=== PATIENT | male | born 1970 | race African-American/Black ===

== ENCOUNTER 2018-03-14 16:53 | Observation (INO) ==
[2018-03-14 18:08] LABS: PT Patient Result 10.7 SECS; Partial Thromboplastin Time 25.2 SECS (0-40)
[2018-03-14 18:19] LABS: Albumin 3.8 G/DL (3.4-5.0); Bilirubin,Total 0.4 MG/DL (0.2-1.0); Calcium 8.8 MG/DL (8.5-10.1); Osmolality,Calculated 280.8 MOS/KG (273-304); Potassium 4.4 MMOL/L (3.5-5.1); Total Protein 8.6 G/DL (6.4-8.3)
[2018-03-14] MEDS ORDERED: LACTATED RINGERS 1,000 ML IV ONE (19:39)
[2018-03-14 22:25] LABS: Basophils % 0.7 % (0.0-0.8); Hematocrit 34.5 VOL% (42.0-52.0); Hemoglobin 11.2 GM/DL (14.0-18.0); Immature Granulocytes % 0.2 %; Immature Granulocytes Absolute 0.01 #; Lymphocytes # 1.8 10*3/uL (1.4-4.0); Lymphocytes % 44.1 % (21.2-54.2); Mean Corpuscular HGB Conc 32.5 GM/DL (32-36); Mean Corpuscular Hemoglobin 30 PG (27-34); Mean Corpuscular Volume 92.5 FL (87-102); Monocytes # 0.3 10*3/uL (0.11-0.8); Monocytes % 6.5 % (1.7-12.7); Neutrophils % 47.5 % (38.7-73.9); Platelet Count 147 T/CUMM (130-400); Red Blood Count 3.73 MC/CUMM (3.8-5.5); Red Cell Distribution Width 15.7 % (9.3-17.3); White Blood Count 4.2 T/CUMM (4-12)
[2018-03-14 22:52] LABS: Hypochromasia 1+; Platelet Estimate Normal
[2018-03-14] MEDS ORDERED: THIAMINE 200 MG/2 ML VIAL IV STA (23:15)
[2018-03-14] MEDS ORDERED: FOLIC ACID INJ 1 MG in SYRINGE 1 EACH IV STA (23:16)
[2018-03-14] MEDS ORDERED: MULTIVITAMIN (BEROCCA) TABLET PO STA (23:19)
[2018-03-14] MEDS ORDERED: DEXTROSE 5% LACTATED RINGERS 1,000 ML IV SCH (23:30)
[2018-03-14] MEDS ORDERED: LACTATED RINGERS 1,000 ML IV SCH (23:30)
[2018-03-15] MEDS ORDERED: LORazepam 1 MG TABLET PO PRN (02:17)
[2018-03-15] MEDS ORDERED: SODIUM CHLORIDE 0.9% 1,000 ML IV SCH (02:30)
[2018-03-15] MEDS ORDERED: ENOXAPARIN 40 MG/0.4 ML SYRINGE SUBCUT SCH (09:00)
[2018-03-15] MEDS ORDERED: THIAMINE 100 MG TABLET PO SCH (09:00)
[2018-03-15] MEDS ORDERED: FOLIC ACID 1 MG TABLET PO SCH (09:00)
[2018-03-15] MEDS ORDERED: MULTIVITAMIN (CENTRUM) TABLET PO SCH (09:00)
[2018-03-15 11:44] VITALS: BP 153/99
== END 2018-03-15 12:56 | disposition home or self-care (01) ==
LOC: EDUNIT# → N.ED 16:53 → N.EDINP 16:53 → SUATTDRO 03-15 02:36 → N.2E 03-15 02:45
PROVIDERS: ADMIT Internal Medicine Infectious Disease; ATTEND Internal Medicine Cardiovascular Disease

== ENCOUNTER 2020-03-30 10:06 | Inpatient (IN) ==
[2020-03-30] MEDS ORDERED: SODIUM CHLORIDE 0.9% 1,000 ML IV STA (10:45)
[2020-03-30 12:08] LABS: Basophils % 0.2 % (0.0-0.8); Hematocrit 41.4 VOL% (42.0-52.0); Hemoglobin 13.3 GM/DL (14.0-18.0); Immature Granulocytes % 0.5 %; Immature Granulocytes Absolute 0.02 #; Lymphocytes # 0.3 10*3/uL (1.4-4.0); Mean Corpuscular HGB Conc 32.1 GM/DL (32-36); Mean Corpuscular Volume 91.8 FL (87-102); Mean Platelet Volume 12.8 FL (9.6-12.0); Monocytes % 7.3 % (1.7-12.7); Red Blood Count 4.51 MC/CUMM (3.8-5.5); Red Cell Distribution Width 13.9 % (9.3-17.3); White Blood Count 4.4 T/CUMM (4-12)
[2020-03-30 12:11] LABS: Platelet Count 95 T/CUMM (130-400)
[2020-03-30 12:41] LABS: Apearance,Urine CLOUDY (Clear); Blood, Urine Moderate mg/dL (Negative); Glucose,Urine (UA) Negative (Negative); Hyaline Casts,Urine 135 /LPF (0-3); Ketones,Urine Negative (Negative); Mucus,Urine Many /LPF (Occasional); Nitrite,Urine Negative (Negative); Protein,Urine 100 MG/DL; RBC,Urine 12 /HPF (0-4); Urine Color Amber (Yellow); Urine Specific Gravity 1.024 (1.001-1.035); Urine Urobilinogen < 2.0 EU/DL (0.2-1.0)
[2020-03-30 12:42] LABS: Bilirubin,Urine Small mg/dL (Negative)
[2020-03-30 12:45] LABS: Barbiturates Screen,Urine Negative (Negative); Benzodiazepines Screen,Urine Negative (Negative); Cannabinoid Screen,Urine Negative (Negative); Opiate Screen,Urine Negative (Negative); Phencyclidine Screen,Urine Negative (Negative)
[2020-03-30 12:47] LABS: Band Neutrophils 62 % (0-10); Lymphocytes 8 % (20-55); Nucleated Red Blood Cells 2 (0-5); Platelet Estimate Decreased; Segmented Neutrophils 22 % (50-85); Total Cells Counted 100
[2020-03-30 12:48] LABS: Macrocytosis Slight
[2020-03-30 12:55] LABS: Alanine Aminotransferase 199 U/L (16-61); Albumin 3.7 G/DL (3.4-5.0); Alkaline Phosphatase 120 U/L (45-117); Aspartate Amino Transferase 360 U/L (0-37); Blood Urea Nitrogen 11 MG/DL (7-18); Calcium 9.5 MG/DL (8.5-10.1); Glucose 91 MG/DL (74-106); Osmolality,Calculated 260.7 MOS/KG (273-304); Total Protein 9.5 G/DL (6.4-8.3)
[2020-03-30 12:58] LABS: Estimated Glom Filtration Rate 0 ML/MIN
[2020-03-30] MEDS ORDERED: THIAMINE 200 MG/2 ML VIAL IV STA (14:16)
[2020-03-30] MEDS ORDERED: ONDANSETRON 4 MG/2 ML VIAL IV PRN (15:33)
[2020-03-30] MEDS ORDERED: guaiFENesin/DM ER 600-30 MG TABLET PO PRN (15:33)
[2020-03-30] MEDS ORDERED: hydrALAZINE 20 MG/1 ML VIAL IV PRN (15:33)
[2020-03-30] MEDS ORDERED: DEXTROSE 50% 25 GM/50 ML VIAL IV PRN (15:33)
[2020-03-30] MEDS ORDERED: GLUCAGON 1 MG VIAL IM PRN (15:33)
[2020-03-30] MEDS ORDERED: LORazepam 2 MG/1 ML VIAL IV PRN (15:40)
[2020-03-30] MEDS ORDERED: THIAMINE INJ 100 MG, FOLIC ACID INJ 1 MG, MULTIVITAMIN INJ 10 ML in SODIUM CHLORIDE 0.9... IV ONE (15:41)
[2020-03-30] MEDS ORDERED: POTASSIUM CHLORIDE 20 MEQ TABLET PO ONE (15:52)
[2020-03-30 16:20] LABS: PT Patient Result 10.9 SECS (9.8-11.9); Partial Thromboplastin Time 38.3 SECS (23.9-33.8)
[2020-03-30] MEDS ORDERED: ACETAMINOPHEN 325 MG TABLET ONE (18:02)
[2020-03-30 18:11] LABS: Folate 14.1 NG/ML (5.4-24.0)
[2020-03-30] MEDS: ACETAMINOPHEN 325 MG TABLET PO PRN (18:27)
[2020-03-30 18:50] LABS: Hepatitis B Core IgM Quant 0.17 Index; Hepatitis B Surface Ag Quant < 0.10 Index; Hepatitis B Surface Ag Result Negative (Negative); Hepatitis C Virus Ab Result Negative (Negative)
[2020-03-31] MEDS: SODIUM CHLOR 0.9% KCL 20 MEQ 20 MEQ/1,000 ML BAG IV SCH ×3 (00:36→19:22)
[2020-03-31 05:15] LABS: Basophils % 0.3 % (0.0-0.8); Hematocrit 35.4 VOL% (42.0-52.0); Hemoglobin 11.4 GM/DL (14.0-18.0); Immature Granulocytes % 0.3 %; Immature Granulocytes Absolute 0.01 #; Lymphocytes # 0.6 10*3/uL (1.4-4.0); Mean Corpuscular HGB Conc 32.2 GM/DL (32-36); Mean Corpuscular Volume 92.2 FL (87-102); Mean Platelet Volume 13.4 FL (9.6-12.0); Monocytes % 18.7 % (1.7-12.7); Neutrophils % 61.7 % (38.7-73.9); Platelet Count 96 T/CUMM (130-400); Red Blood Count 3.84 MC/CUMM (3.8-5.5); Red Cell Distribution Width 13.9 % (9.3-17.3); White Blood Count 3.3 T/CUMM (4-12)
[2020-03-31 05:45] LABS: Albumin 2.7 G/DL (3.4-5.0); Bilirubin,Total 0.7 MG/DL (0.2-1.0); Osmolality,Calculated 260.5 MOS/KG (273-304); Risk Ratio 2.62; Thyroid Stimulating Hormone 2.15 uIU/ml (0.358-3.74); Total Protein 7.3 G/DL (6.4-8.3); VLDL CHOLESTEROL 20.8 MG/DL
[2020-03-31 06:16] LABS: Band Neutrophils 15 % (0-10); Eosinophils 1 % (0-10); Hypochromasia 1+; Lymphocytes 15 % (20-55); Metamyelocytes 1 %; Segmented Neutrophils 55 % (50-85); Total Cells Counted 100
[2020-03-31 06:17] LABS: Macrocytosis Slight; Platelet Estimate Decreased; Polychromasia Slight; Stomatocytes Slight
[2020-03-31] MEDS: MULTIVITAMIN (CENTRUM) TABLET PO SCH (08:51)
[2020-03-31] MEDS: THIAMINE 100 MG TABLET PO SCH (08:51)
[2020-03-31] MEDS: PANTOPRAZOLE 40 MG TABLET PO SCH (08:51)
[2020-03-31] MEDS: FOLIC ACID 1 MG TABLET PO SCH (08:52)
[2020-03-31] MEDS: LOPERAMIDE 2 MG CAPSULE PO PRN ×2 (10:11→14:14)
[2020-03-31] MEDS: ZINC OXIDE PASTE 113 GM TUBE TOP SCH ×2 (17:23→20:13)
[2020-04-01] MEDS: SODIUM CHLOR 0.9% KCL 20 MEQ 20 MEQ/1,000 ML BAG IV SCH ×3 (03:30→20:24)
[2020-04-01 05:42] LABS: Basophils % 0.4 % (0.0-0.8); Hemoglobin 10.8 GM/DL (14.0-18.0); Immature Granulocytes % 0.4 %; Immature Granulocytes Absolute 0.02 #; Lymphocytes # 0.5 10*3/uL (1.4-4.0); Lymphocytes % 11.4 % (21.2-54.2); Mean Corpuscular HGB Conc 31.8 GM/DL (32-36); Mean Corpuscular Volume 92.4 FL (87-102); Mean Platelet Volume 12.5 FL (9.6-12.0); Monocytes % 16.7 % (1.7-12.7); Neutrophils % 71.1 % (38.7-73.9); Platelet Count 103 T/CUMM (130-400); Red Blood Count 3.68 MC/CUMM (3.8-5.5); Red Cell Distribution Width 13.6 % (9.3-17.3); White Blood Count 4.5 T/CUMM (4-12)
[2020-04-01 06:11] LABS: Albumin 2.6 G/DL (3.4-5.0); Bilirubin,Total 0.6 MG/DL (0.2-1.0); Calcium 8.2 MG/DL (8.5-10.1); Osmolality,Calculated 255.9 MOS/KG (273-304)
[2020-04-01] MEDS ORDERED: POTASSIUM CHLORIDE 20 MEQ TABLET PO ONE (08:01)
[2020-04-01 08:11] LABS: Band Neutrophils 6 % (0-10); Hypochromasia 1+; Lymphocytes 14 % (20-55); Platelet Estimate Decreased; Segmented Neutrophils 64 % (50-85); Total Cells Counted 100
[2020-04-01] MEDS: THIAMINE 100 MG TABLET PO SCH (09:33)
[2020-04-01] MEDS: FOLIC ACID 1 MG TABLET PO SCH (09:33)
[2020-04-01] MEDS: MULTIVITAMIN (CENTRUM) TABLET PO SCH (09:33)
[2020-04-01] MEDS: PANTOPRAZOLE 40 MG TABLET PO SCH (09:33)
[2020-04-01] MEDS: ZINC OXIDE PASTE 113 GM TUBE TOP SCH ×2 (09:34→20:25)
[2020-04-01] MEDS: chlordiazePOXIDE 10 MG CAPSULE PO PRN (15:17)
[2020-04-01] MEDS: hydrALAZINE 10 MG TABLET PO SCH ×2 (16:05→20:24)
[2020-04-01] MEDS: ACETAMINOPHEN 325 MG TABLET PO PRN (16:05)
[2020-04-01] MEDS ORDERED: TUBERCULIN SKIN TEST 0.1 ML SYRINGE INTRADERM ONE (16:47)
[2020-04-02] MEDS: chlordiazePOXIDE 10 MG CAPSULE PO PRN ×2 (01:58→10:57)
[2020-04-02] MEDS: SODIUM CHLOR 0.9% KCL 20 MEQ 20 MEQ/1,000 ML BAG IV SCH ×2 (04:23→19:19)
[2020-04-02 05:19] LABS: Basophils % 0.5 % (0.0-0.8); Eosinophils % 0.2 % (0.00-10.9); Hematocrit 33.5 VOL% (42.0-52.0); Hemoglobin 11.1 GM/DL (14.0-18.0); Immature Granulocytes % 0.5 %; Immature Granulocytes Absolute 0.03 #; Lymphocytes % 15.9 % (21.2-54.2); Mean Corpuscular HGB Conc 33.1 GM/DL (32-36); Mean Corpuscular Volume 89.1 FL (87-102); Mean Platelet Volume 11.9 FL (9.6-12.0); Monocytes % 29.7 % (1.7-12.7); Neutrophils % 53.2 % (38.7-73.9); Platelet Count 118 T/CUMM (130-400); Red Blood Count 3.76 MC/CUMM (3.8-5.5); Red Cell Distribution Width 13.4 % (9.3-17.3); White Blood Count 6.3 T/CUMM (4-12)
[2020-04-02 05:50] LABS: Albumin 2.6 G/DL (3.4-5.0); Bilirubin,Total 0.7 MG/DL (0.2-1.0); Calcium 8.5 MG/DL (8.5-10.1); Osmolality,Calculated 252.1 MOS/KG (273-304); Total Protein 7.2 G/DL (6.4-8.3)
[2020-04-02 06:55] LABS: Anisocytosis 1+; Band Neutrophils 23 % (0-10); Lymphocytes 23 % (20-55); Platelet Estimate Adequate; Segmented Neutrophils 31 % (50-85); Total Cells Counted 100
[2020-04-02 06:56] LABS: Macrocytosis 1+
[2020-04-02] MEDS: MULTIVITAMIN (CENTRUM) TABLET PO SCH (08:30)
[2020-04-02] MEDS: hydrALAZINE 10 MG TABLET PO SCH ×3 (08:30→21:02)
[2020-04-02] MEDS: THIAMINE 100 MG TABLET PO SCH (08:30)
[2020-04-02] MEDS: PANTOPRAZOLE 40 MG TABLET PO SCH (08:30)
[2020-04-02] MEDS: ZINC OXIDE PASTE 113 GM TUBE TOP SCH ×2 (08:31→21:02)
[2020-04-02] MEDS: FOLIC ACID 1 MG TABLET PO SCH (08:32)
[2020-04-02] MEDS ORDERED: cefTRIAXone 1,000 MG in SYRINGE 1 EACH IV SCH (09:00)
[2020-04-02] MEDS: metroNIDAZOLE INJ 500 MG in PREMIX 1 EACH IV SCH ×2 (10:49→17:42)
[2020-04-02] MEDS: CIPROFLOXACIN INJ 400 MG in PREMIX 1 EACH IV SCH ×2 (12:07→22:46)
[2020-04-02] MEDS: CLOTRIMAZOLE 1% CREAM 15 GM TUBE TOP SCH ×2 (12:08→21:02)
[2020-04-03] MEDS: metroNIDAZOLE INJ 500 MG in PREMIX 1 EACH IV SCH ×2 (01:29→10:57)
[2020-04-03 05:46] LABS: Basophils % 0.3 % (0.0-0.8); Eosinophils # 0.1 10*3/uL (0.0-0.87); Eosinophils % 1.2 % (0.00-10.9); Hematocrit 32.3 VOL% (42.0-52.0); Hemoglobin 10.6 GM/DL (14.0-18.0); Immature Granulocytes % 0.7 %; Immature Granulocytes Absolute 0.04 #; Lymphocytes % 17.6 % (21.2-54.2); Mean Corpuscular HGB Conc 32.8 GM/DL (32-36); Mean Corpuscular Volume 89.2 FL (87-102); Mean Platelet Volume 11.4 FL (9.6-12.0); Monocytes % 27.1 % (1.7-12.7); Neutrophils % 53.1 % (38.7-73.9); Platelet Count 159 T/CUMM (130-400); Red Blood Count 3.62 MC/CUMM (3.8-5.5); Red Cell Distribution Width 13.6 % (9.3-17.3); White Blood Count 5.8 T/CUMM (4-12)
[2020-04-03 06:07] LABS: Calcium 8.2 MG/DL (8.5-10.1); Osmolality,Calculated 266.1 MOS/KG (273-304)
[2020-04-03 06:49] LABS: Band Neutrophils 24 % (0-10); Eosinophils 2 % (0-10); Lymphocytes 14 % (20-55); Metamyelocytes 1 %; Platelet Estimate Normal; Segmented Neutrophils 38 % (50-85); Smudge Cells Few; Total Cells Counted 100; Toxic Granulation 1+
[2020-04-03 06:50] LABS: Anisocytosis 1+; Target Cells Few; Tear Drop Cells Few
[2020-04-03] MEDS ORDERED: MAGNESIUM SULF RIDER 2 GM in PREMIX 1 EACH IV ONE (07:40)
[2020-04-03] MEDS: MULTIVITAMIN (CENTRUM) TABLET PO SCH (09:40)
[2020-04-03] MEDS: FOLIC ACID 1 MG TABLET PO SCH (09:40)
[2020-04-03] MEDS: hydrALAZINE 10 MG TABLET PO SCH ×3 (09:40→21:08)
[2020-04-03] MEDS: LOPERAMIDE 2 MG CAPSULE PO PRN ×2 (09:40→21:07)
[2020-04-03] MEDS: THIAMINE 100 MG TABLET PO SCH (09:40)
[2020-04-03] MEDS: PANTOPRAZOLE 40 MG TABLET PO SCH (09:41)
[2020-04-03] MEDS: CLOTRIMAZOLE 1% CREAM 15 GM TUBE TOP SCH ×2 (09:41→21:08)
[2020-04-03] MEDS: ZINC OXIDE PASTE 113 GM TUBE TOP SCH ×2 (09:42→21:08)
[2020-04-03] MEDS: SODIUM CHLOR 0.9% KCL 20 MEQ 20 MEQ/1,000 ML BAG IV SCH ×2 (09:42→21:27)
[2020-04-03] MEDS: POTASSIUM CHLORIDE 20 MEQ TABLET PO SCH (10:04)
[2020-04-03] MEDS: CIPROFLOXACIN INJ 400 MG in PREMIX 1 EACH IV SCH (12:46)
[2020-04-03] MEDS: ACETAMINOPHEN 325 MG TABLET PO PRN (14:46)
[2020-04-04] MEDS: LOPERAMIDE 2 MG CAPSULE PO PRN (01:48)
[2020-04-04 06:05] LABS: Basophils # 0.1 10*3/uL (0.0-0.2); Basophils % 0.8 % (0.0-0.8); Eosinophils # 0.1 10*3/uL (0.0-0.87); Eosinophils % 1.9 % (0.00-10.9); Hematocrit 32.4 VOL% (42.0-52.0); Hemoglobin 10.2 GM/DL (14.0-18.0); Immature Granulocytes % 0.8 %; Immature Granulocytes Absolute 0.05 #; Lymphocytes # 1.4 10*3/uL (1.4-4.0); Lymphocytes % 23.2 % (21.2-54.2); Mean Corpuscular HGB Conc 31.5 GM/DL (32-36); Mean Corpuscular Volume 91.5 FL (87-102); Mean Platelet Volume 10.7 FL (9.6-12.0); Monocytes % 21.2 % (1.7-12.7); Neutrophils % 52.1 % (38.7-73.9); Platelet Count 262 T/CUMM (130-400); Red Blood Count 3.54 MC/CUMM (3.8-5.5); White Blood Count 5.9 T/CUMM (4-12)
[2020-04-04 06:34] LABS: Band Neutrophils 1 % (0-10); Eosinophils 3 % (0-10); Hypochromasia 1+; Lymphocytes 22 % (20-55); Microcytosis 1+; Platelet Estimate Adequate; Segmented Neutrophils 55 % (50-85); Total Cells Counted 100
[2020-04-04 06:46] LABS: Calcium 8.2 MG/DL (8.5-10.1); Osmolality,Calculated 270.7 MOS/KG (273-304)
[2020-04-04 06:50] LABS: Albumin 2.2 G/DL (3.4-5.0); Bilirubin,Direct 0.16 MG/DL (0.0-0.20); Bilirubin,Indirect 0.6 MG/DL (0.0-1.0); Bilirubin,Total 0.8 MG/DL (0.2-1.0); Total Protein 6.8 G/DL (6.4-8.3)
[2020-04-04] MEDS ORDERED: TUBERCULIN SKIN TEST 0.1 ML SYRINGE INTRADERM ONE (09:28)
[2020-04-04] MEDS: SODIUM CHLOR 0.9% KCL 20 MEQ 20 MEQ/1,000 ML BAG IV SCH (09:44)
[2020-04-04] MEDS: PANTOPRAZOLE 40 MG TABLET PO SCH (09:45)
[2020-04-04] MEDS: POTASSIUM CHLORIDE 20 MEQ TABLET PO SCH (09:45)
[2020-04-04] MEDS: FOLIC ACID 1 MG TABLET PO SCH (09:45)
[2020-04-04] MEDS: MULTIVITAMIN (CENTRUM) TABLET PO SCH (09:45)
[2020-04-04] MEDS: THIAMINE 100 MG TABLET PO SCH (09:45)
[2020-04-04] MEDS: CLOTRIMAZOLE 1% CREAM 15 GM TUBE TOP SCH ×2 (09:46→20:31)
[2020-04-04] MEDS: ZINC OXIDE PASTE 113 GM TUBE TOP SCH ×2 (09:46→20:30)
[2020-04-04] MEDS: hydrALAZINE 10 MG TABLET PO SCH ×3 (09:50→20:31)
[2020-04-05 06:40] LABS: Basophils # 0.1 10*3/uL (0.0-0.2); Basophils % 0.8 % (0.0-0.8); Eosinophils # 0.2 10*3/uL (0.0-0.87); Eosinophils % 1.5 % (0.00-10.9); Hematocrit 34.3 VOL% (42.0-52.0); Hemoglobin 11.2 GM/DL (14.0-18.0); Immature Granulocytes % 1.2 %; Immature Granulocytes Absolute 0.12 #; Lymphocytes # 1.9 10*3/uL (1.4-4.0); Lymphocytes % 19.1 % (21.2-54.2); Mean Corpuscular HGB Conc 32.7 GM/DL (32-36); Mean Platelet Volume 10.4 FL (9.6-12.0); Monocytes % 14.1 % (1.7-12.7); Neutrophils % 63.3 % (38.7-73.9); Platelet Count 424 T/CUMM (130-400); Red Blood Count 3.81 MC/CUMM (3.8-5.5); Red Cell Distribution Width 14.3 % (9.3-17.3); White Blood Count 9.8 T/CUMM (4-12)
[2020-04-05 06:56] LABS: Calcium 9.1 MG/DL (8.5-10.1)
[2020-04-05 07:00] LABS: Hypochromasia 1+; Platelet Estimate Adequate
[2020-04-05 07:01] LABS: Microcytosis 1+
[2020-04-05] MEDS ORDERED: POTASSIUM CHLORIDE 20 MEQ TABLET PO ONE (08:05)
[2020-04-05] MEDS: THIAMINE 100 MG TABLET PO SCH (10:02)
[2020-04-05] MEDS: MULTIVITAMIN (CENTRUM) TABLET PO SCH (10:02)
[2020-04-05] MEDS: POTASSIUM CHLORIDE 20 MEQ TABLET PO SCH (10:02)
[2020-04-05] MEDS: CLOTRIMAZOLE 1% CREAM 15 GM TUBE TOP SCH (10:03)
[2020-04-05] MEDS: hydrALAZINE 10 MG TABLET PO SCH ×2 (10:03→15:50)
[2020-04-05] MEDS: ZINC OXIDE PASTE 113 GM TUBE TOP SCH (10:03)
[2020-04-05] MEDS: PANTOPRAZOLE 40 MG TABLET PO SCH (10:03)
[2020-04-05] MEDS: FOLIC ACID 1 MG TABLET PO SCH (10:03)
[2020-04-05 17:18] VITALS: BP 125/62
== END 2020-04-05 18:52 | DRG 918 ==
LOC: N.EDINP 10:06 → N.ED 10:06 → N.3E 17:05 → SUATTDRO 04-02 15:39
PROVIDERS: ADMIT Family Medicine; ATTEND Internal Medicine

== ENCOUNTER 2020-12-14 07:13 | Inpatient (IN) ==
[2020-12-14] MEDS ORDERED: DILTIAZEM 100 MG VIAL.ADD IV ONE (07:22)
[2020-12-14] MEDS ORDERED: MAGNESIUM SULF RIDER 2 GM in PREMIX 1 EACH IV STA (07:22)
[2020-12-14] MEDS ORDERED: SODIUM CHLORIDE 0.9% 1,000 ML IV STA (07:22)
[2020-12-14] MEDS ORDERED: DILTIAZEM 50 MG/10 ML VIAL IV STA (07:22)
[2020-12-14] MEDS ORDERED: DILTIAZEM 25 MG/5 ML VIAL IV ONE (07:23)
[2020-12-14 08:45] LABS: Basophils % 0.5 % (0.0-0.8); Eosinophils % 0.4 % (0.00-10.9); Hematocrit 44.2 VOL% (42.0-52.0); Immature Granulocytes % 0.3 %; Immature Granulocytes Absolute 0.02 #; Lymphocytes # 1.2 10*3/uL (1.4-4.0); Lymphocytes % 15.4 % (21.2-54.2); Mean Corpuscular HGB Conc 31.7 GM/DL (32-36); Mean Corpuscular Volume 86.8 FL (87-102); Mean Platelet Volume 9.9 FL (9.6-12.0); Monocytes % 5.8 % (1.7-12.7); Neutrophils % 77.6 % (38.7-73.9); Platelet Count 272 T/CUMM (130-400); Red Blood Count 5.09 MC/CUMM (3.8-5.5); Red Cell Distribution Width 14.6 % (9.3-17.3); White Blood Count 7.6 T/CUMM (4-12)
[2020-12-14 08:55] LABS: INR 1.1; PT Patient Result 11.4 SECS (9.8-11.9); Partial Thromboplastin Time 34.2 SECS (23.9-33.8)
[2020-12-14 09:12] LABS: Barbiturates Screen,Urine Negative (Negative); Benzodiazepines Screen,Urine Positive (Negative); Cannabinoid Screen,Urine Negative (Negative); Opiate Screen,Urine Negative (Negative); Phencyclidine Screen,Urine Negative (Negative)
[2020-12-14 09:20] LABS: Albumin 3.9 G/DL (3.4-5.0); Bilirubin,Total 0.7 MG/DL (0.2-1.0); Calcium 9.2 MG/DL (8.5-10.1); Osmolality,Calculated 281.3 MOS/KG (273-304); Potassium 3.6 MMOL/L (3.5-5.1); Thyroid Stimulating Hormone 2.27 uIU/ml (0.358-3.74); Total Protein 8.3 G/DL (5.0-7.5)
[2020-12-14] MEDS: DILTIAZEM INJ 100 MG in SODIUM CHLORIDE 0.9% 100 ML IV SCH ×2 (09:42→16:06)
[2020-12-14] MEDS ORDERED: GLUCAGON 1 MG VIAL IM PRN (09:59)
[2020-12-14] MEDS ORDERED: DEXTROSE 50% 25 GM/50 ML VIAL IV PRN (09:59)
[2020-12-14] MEDS ORDERED: ACETAMINOPHEN 325 MG TABLET PO PRN (10:04)
[2020-12-14] MEDS ORDERED: ONDANSETRON 4 MG/2 ML VIAL IV PRN (10:04)
[2020-12-14] MEDS ORDERED: FUROSEMIDE 40 MG/4 ML VIAL IV ONE (10:27)
[2020-12-14] MEDS ORDERED: ENOXAPARIN 40 MG/0.4 ML SYRINGE SUBCUT SCH (10:30)
[2020-12-14 10:44] LABS: Risk Ratio 2.27; VLDL CHOLESTEROL 11.6 MG/DL
[2020-12-14] MEDS ORDERED: NICOTINE 14 MG/24 HR PATCH TRANSDERM PRN (10:53)
[2020-12-14] MEDS ORDERED: LORazepam 2 MG/1 ML VIAL IV PRN (10:53)
[2020-12-14] MEDS: ASCORBIC ACID 500 MG TABLET PO SCH ×2 (12:53→21:01)
[2020-12-14] MEDS ORDERED: PNEUMOCOCCAL VACCINE (23 VALENT) 0.5 ML VIAL IM ONE (13:39)
[2020-12-14] MEDS ORDERED: INFLUENZA VIRUS VACCINE 0.5 ML SYRINGE IM ONE (13:39)
[2020-12-14] MEDS: APIXABAN 2.5 MG TABLET PO SCH (21:00)
[2020-12-14] MEDS: SOTALOL 80 MG TABLET PO SCH (21:01)
[2020-12-15 05:39] LABS: Basophils % 0.3 % (0.0-0.8); Eosinophils # 0.1 10*3/uL (0.0-0.87); Eosinophils % 1.2 % (0.00-10.9); Hematocrit 41.8 VOL% (42.0-52.0); Hemoglobin 13.8 GM/DL (14.0-18.0); Immature Granulocytes % 0.3 %; Immature Granulocytes Absolute 0.02 #; Lymphocytes # 2.1 10*3/uL (1.4-4.0); Lymphocytes % 30.7 % (21.2-54.2); Mean Corpuscular Volume 83.8 FL (87-102); Mean Platelet Volume 10.3 FL (9.6-12.0); Monocytes % 6.9 % (1.7-12.7); Neutrophils % 60.6 % (38.7-73.9); Platelet Count 312 T/CUMM (130-400); Red Blood Count 4.99 MC/CUMM (3.8-5.5); Red Cell Distribution Width 14.4 % (9.3-17.3); White Blood Count 6.7 T/CUMM (4-12)
[2020-12-15 06:09] LABS: Calcium 9.1 MG/DL (8.5-10.1); Osmolality,Calculated 270.1 MOS/KG (273-304); Potassium 3.6 MMOL/L (3.5-5.1)
[2020-12-15] MEDS: DILTIAZEM INJ 100 MG in SODIUM CHLORIDE 0.9% 100 ML IV SCH (07:40)
[2020-12-15] MEDS: ASCORBIC ACID 500 MG TABLET PO SCH (08:19)
[2020-12-15] MEDS: SOTALOL 80 MG TABLET PO SCH (08:19)
[2020-12-15] MEDS: APIXABAN 2.5 MG TABLET PO SCH (08:19)
[2020-12-15] MEDS ORDERED: lisinopriL 2.5 MG TABLET PO SCH (09:00)
[2020-12-15] MEDS ORDERED: FOLIC ACID 1 MG TABLET PO SCH (09:00)
[2020-12-15] MEDS ORDERED: THIAMINE 100 MG TABLET PO SCH (09:00)
[2020-12-15 15:51] VITALS: BP 134/89
== END 2020-12-15 16:15 | disposition home or self-care (01) | DRG 308 ==
LOC: EDUNIT# → EDBD → N.ED 07:13 → N.EDINP 09:50 → N.TELEN 13:21
PROVIDERS: ADMIT Internal Medicine; ATTEND Internal Medicine